=== PATIENT | male | born 1950 | race Caucasian/White ===

== ENCOUNTER 2020-12-08 10:12 | Outpatient (REF) | payer MEDICARE, SELFPAY ==
[2020-12-08 14:21] LABS: PSA,Total (Free>4and<10) 7.61 ng/mL (0.00-4.00)
[2020-12-10 12:37] LABS: Free Prostate Spec Ag 2.1 ng/mL; Percent Free Prostate Spec Ag 30 % (calc) (>25)
== END 2020-12-08 10:13 | disposition home or self-care (01) ==
LOC: HO.10HDL 10:12
PROVIDERS: Visit Provider Urology
DX: Z12.5 Encounter for screening for malignant neoplasm of prostate (principal); N40.0 Benign prostatic hyperplasia without lower urinary tract symptoms; R97.20 Elevated prostate specific antigen [PSA]
CPT/HCPCS: 36415; 84153; 84154

== ENCOUNTER → 2020-12-15 12:45 | Outpatient (BNVA) | payer MEDICARE, SELFPAY | PROVIDERS: Visit Provider Urology | CPT/HCPCS: Q3014 ==

== ENCOUNTER → 2021-01-05 13:28 | Outpatient (BNVA) | payer MEDICARE, SELFPAY | PROVIDERS: Visit Provider Urology | DX: N40.0 Benign prostatic hyperplasia without lower urinary tract symptoms (principal); R97.20 Elevated prostate specific antigen [PSA] | CPT/HCPCS: Q3014 ==

== ENCOUNTER 2021-02-20 11:14 | Outpatient (REF) | payer MEDICARE, SELFPAY ==
[2021-02-20 12:49] VITALS: BMI 28.3
[2021-02-20 12:50] VITALS: BP 155/60; PULSE 62; RESP 16; TEMP 36.6; O2SAT 99
[2021-02-20 13:17] VITALS: BP 145/65; PULSE 71; RESP 16; O2SAT 100
--- NOTE | 2021-02-20 13:17 | W.PM.OPN ---
Operative Note Operative Note Date of Service: 02/20/21 Narrative: Preoperative diagnosis: Elevated PSA Postoperative diagnosis: Elevated PSA Procedure: 1. transrectal ultrasound measurement of prostate 2. transrectal ultrasound-guided pudendal nerve block 3. transrectal ultrasound-guided prostate biopsy 12 core Surgeon: Dr. Mingo Warner Anesthetic: Local Indications for procedure: Elevated PSA Prostate Cancer Procedure: After informed consent was verified, the patient was brought into the procedure area and lay left-hand side down on the table. Patient identity confirmed. Perioperative antibiotics confirmed. Iodine 10cc with Gel was placed per rectum Ultrasound probe was placed per rectum The prostate was measured in 3 dimensions Total volume equals 110 gm There were no cystic structures and no calcifications noted and the prostate was heterogenous in nature A ultrasound-guided pudendal nerve block was performed using 10 cc of 1% lidocaine. 8 cc was placed at the base and 2 cc of the apex. A 12 core biopsy was performed with 6 cores each side. Two cores were taken at the apex, mid and base. Cores were spaced between lateral and medial. He tolerated the procedure well. Was able to ambulate to bathroom after 5 minutes. Printed instructions regarding antibiotic use and common side effects such as low-grade temperature and bleeding were given Pathology: 12 core prostate biopsy.
[2021-02-20 13:20] VITALS: BP 94/52; PULSE 57; RESP 12; O2SAT 96
[2021-02-20 13:31] VITALS: BP 114/41; PULSE 64; RESP 16; O2SAT 100
[2021-02-20 13:51] VITALS: BP 112/43; PULSE 59; RESP 16; O2SAT 97
[2021-02-20 14:45] VITALS: BP 111/50; PULSE 59; RESP 17; O2SAT 99
== END 2021-02-20 11:15 | disposition home or self-care (01) ==
LOC: HO.MS 11:14
PROVIDERS: PCP Internal Medicine; Visit Provider Urology
PROC: (CPT 55700; principal; 2021-02-20 12:00)
DX: R97.20 Elevated prostate specific antigen [PSA] (principal); Z87.891 Personal history of nicotine dependence
CPT/HCPCS: 55700; 76942; 88305; 88344

== ENCOUNTER → 2021-02-28 09:52 | Outpatient (BNVA) | payer MEDICARE, SELFPAY | PROVIDERS: PCP Internal Medicine; Visit Provider Urology | DX: R97.20 Elevated prostate specific antigen [PSA] (principal); N40.0 Benign prostatic hyperplasia without lower urinary tract symptoms | CPT/HCPCS: Q3014 ==

== ENCOUNTER → 2021-06-15 11:25 | Outpatient (BNVA) | payer MEDICARE, SELFPAY | PROVIDERS: PCP Internal Medicine; Visit Provider Urology | DX: N40.0 Benign prostatic hyperplasia without lower urinary tract symptoms (principal); R97.20 Elevated prostate specific antigen [PSA] | CPT/HCPCS: Q3014 ==

== ENCOUNTER → 2021-12-12 13:06 | Outpatient (BNVA) | payer MEDICARE, SELFPAY | PROVIDERS: PCP Internal Medicine; Visit Provider Urology | DX: N40.0 Benign prostatic hyperplasia without lower urinary tract symptoms (principal); N52.9 Male erectile dysfunction, unspecified | CPT/HCPCS: Q3014 ==

== ENCOUNTER → 2022-06-18 08:28 | Outpatient (BNVA) | payer MEDICARE, SELFPAY | PROVIDERS: PCP Internal Medicine; Visit Provider Urology | DX: N52.9 Male erectile dysfunction, unspecified (principal); N40.0 Benign prostatic hyperplasia without lower urinary tract symptoms; R97.20 Elevated prostate specific antigen [PSA] | CPT/HCPCS: 51798; 99212 ==

== ENCOUNTER 2022-12-27 08:29 | Outpatient (AMB) | payer MEDICARE, SELFPAY ==
--- NOTE | 2022-12-27 08:35 | MHC.OFFVIS ---
Intake Intake Visit Reasons: 6M PSA(set) Intake Note: Patient is Present for Follow Up PSA/PVR Urology Medication: Finasteride, Tadalafil (Patient is requesting Refill on Finasteride) Antibiotic Allergies: None Blood Thinners: Aspirin, Xarelton Pharmacy: [facility] PVR: 0 Compliants: Allergies atenolol Allergy (Unknown, Verified 12/27/22 08:39) bradycardia epinephrine Allergy (Unknown, Verified 12/27/22 08:39) tachycardia Medication List - Last Reconciled 12/27/22 by Mingo Warner MD aspirin (Adult Low Dose Aspirin) 81 mg PO DAILY chlorthalidone 25 mg PO DAILY clotrimazole-betamethasone 1-0.05 % 1 appl topical BID 4 weeks finasteride 5 mg PO DAILY 90 days levothyroxine 75 mcg PO DAILY metoprolol succinate ER mg PO pravastatin 20 mg PO DAILY rivaroxaban (Xarelto) 20 mg PO DAILY tadalafil 20 mg PO ONCE PRN 30 days valsartan 320 mg PO DAILY HPI HPI Comments History of Present Illness Details Brendan Hanson is a very pleasant male. He is a patient of Dr. Mari. He here for further evaluation of the following urologic conditions. - Elevated PSA - erectile dysfunction PSA remains stable High free percentage Known 100 g prostate Phimosis Recommend betamethasone clotrimazole 4 weeks thin coat twice a day Continue PSA testing every 6 months Elevated PSA/Abnormal KIKA:? Current management is?observation.? Laboratory investigations include?a free and total PSA evaluation - July 2013 4.4, January 2014 6.1, March 2014 5.0, 28% free, Oct 2015 5.8, 29% free, ?05/17 5.8 36%,?11/14 4.8, 05/18 4.8, 11/15 6.7 F 30%, 05/19 6.2, 11/16 6.4 30%,?11/17 6.8 F30%, 12/19 7.0 30%, 06/19 8.2 30%, 12/21 4.9 18% ? Imaging investigations include? a transrectal ultrasound ?- 06/16 Bladder US - 80 gm prostate, 50cc PVR - 9/19 Bladder US - 100gm prostate, 100cc residual Prostate biopsy 01/18 110 g prostate with 12 core biopsy normal - 11/18 Exomed 45 ? His current IPSS? IPSS Score ?9 ? Overall symptoms are?mild.? Therapeutic plan will be?continue to follow PSA [facility] Medical History Benign prostatic hyperplasia without lower urinary tract symptoms Elevated prostate specific antigen [PSA] Social History Alcohol intake: current Alcohol intake frequency: holidays/special occasions only Patient Tobacco Use Status: Former Tobacco user Review of Systems Const Denies chills and Denies fever(s) Card Reports no additional complaints and Denies syncope Resp Denies cough GI Denies abdominal pain and Denies heartburn Reports as per HPI and Denies change in libido Neuro Denies syncope Psych Denies change in libido Endo Denies change in libido Physical Exam Const General: cooperative, healthy appearing, comfortable and no acute distress Orientation/consciousness: patient oriented x3 HEENT Face and sinus: Yes normal facial exam Mouth: moist mucous membranes Neck Neck: Yes normal visual inspection, Yes full ROM and Yes trachea midline Chest Chest palpation & inspection: normal inspection of the chest Resp Effort & Inspection: normal respiratory effort, able to speak in complete sentences and no respiratory distress GI Inspection: Yes normal to inspection Back/Spine/Pelvis Cervical Spine: normal cervical lordosis Thoracic/Lumbar Spine: thoracic and lumbar spine normal to inspection Skin General skin exam: no rashes or lesions noted Neuro General: patient oriented x3, gait normal, tone normal and moves all extremities Extrem General: Yes normal to inspection and Yes capillary refill normal Office Procedures Post Void Residual Post Residual Void Post Void Residual (PVR): 0 [id number] Void Residual by ultrasound Results AMB Urinalysis, Automated UA Leukoctes 0 Aniket/uL Last Edit by ADRIANA Posadas on 12/27/22 08:46 UA Nitrite Negative Last Edit by ADRIANA Posadas on 12/27/22 08:46 UA Urobilinogen 0.2 mg/dL Last Edit by Genie Galdamez RMA on 12/27/22 08:46 UA Protein 0 mg/dL Last Edit by Genie Galdamez RMA on 12/27/22 08:46 UA pH 6.0 Last Edit by Genie Galdamez, RMA on 12/27/22 08:46 UA Blood 0 Emigdio/uL Last Edit by Genie Galdamez, RMA on 12/27/22 08:46 UA Specific [place] 1.015 Last Edit by Genie Galdamez, RMA on 12/27/22 08:46 UA Ketone Negative Last Edit by Genie Galdamez, RMA on 12/27/22 08:46 UA Bilirubin 0 mg/dL Last Edit by Genie Galdamez RMA on 12/27/22 08:46 UA Glucose 0 mg/dL Last Edit by Genie Galdamez, RMA on 12/27/22 08:46 Results Reviewed Results Reviewed: Laboratory Last Values Urine pH (Auto) 6.0 12/27/22 08:40 Specific [place] (Auto) 1.015 12/27/22 08:40 Urine Protein (Auto) 0 mg/dL 12/27/22 08:40 Glucose (UA)(Auto) 0 mg/dL 12/27/22 08:40 Urine Ketones (Auto) Negative 12/27/22 08:40 Urine Blood (Auto) 0 Emigdio/uL 12/27/22 08:40 Urine Nitrite (Auto) Negative 12/27/22 08:40 Urine Bilirubin (Auto) 0 mg/dL 12/27/22 08:40 Urine Urobilinogen (Auto) 0.2 mg/dL 12/27/22 08:40 Leukocyte Esterase (Auto) 0 Aniket/uL 12/27/22 08:40 Assessment & Plan Assessment & Plan (1) Phimosis: Code(s): N47.1 - Phimosis Plan Six month follow-up Orders: Orders AMB Urinalysis Automated Today Z13.9 - Encounter for screening, unspecified PSA,Total (Free>4and<10) 6 Months R97.20 - Elevated prostate specific antigen [PSA] AMB Post Void Residual by ultrasound Today N40.0 - Benign prostatic hyperplasia without lower urinary tract symptoms Medications: New clotrimazole-betamethasone 1-0.05 % Apply thin coat 2 times per day 1 appl topical BID 45 grams 0RF 4 weeks N47.1 - Phimosis, N48.1 - Balanitis Patient Instructions: Imaging studies, laboratory and physical exam results were discussed and reviewed in detail. No major barriers to patient understanding were identified. An opportunity to ask questions regarding the treatment plan was provided. All questions were answered. The patient expressed understanding and agreement with the above treatment plan. The patient is aware they should contact our office by phone for worsening of their current condition or the appearance of new urologic symptoms. Compliance is encouraged with any medications and followup testing that is ordered. It is a privilege to participate in the urologic care of your patient. If you have any questions or concerns regarding treatment for the above conditions, or other urologic issues, please do not hesitate to contact me. The office telephone contact is [phone]. This note is constructed using voice recognition software. While every effort has been made to ensure accuracy district manager major accounts sales errors may have been included. Yours sincerely, Dr Mingo Warner MD, [facility] - Urology Providers of Expert, Compassionate Care for the Genitourinary System Coding Level of Care Code Est Pt Level 4 (78980) Diagnoses Phimosis N47.1 CPT Codes Post Residual Void - PVR CPT Code: 61256-[id number] Void Residual by ultrasound ([id number])
== END 2022-12-27 08:57 | disposition home or self-care (01) ==
PROVIDERS: PCP Internal Medicine; Visit Provider Urology
DX: N47.1 Phimosis (principal); Z13.9 Encounter for screening, unspecified
CPT/HCPCS: 99214

== ENCOUNTER → 2022-12-27 08:29 | Outpatient (BNVA) | payer MEDICARE, SELFPAY | PROVIDERS: Visit Provider Urology | DX: N47.1 Phimosis (principal) | CPT/HCPCS: 51798; 81003; 99212 ==

== ENCOUNTER 2023-06-20 13:28 | Outpatient (REF) | payer MEDICARE, SELFPAY ==
[2023-06-20 15:12] LABS: PSA,Total (Free>4and<10) 4.09 ng/mL (0.00-4.00)
[2023-06-23 10:34] LABS: Percent Free Prostate Spec Ag 26 % (calc) (>25); Prostate Specific Ag Total 3.8 ng/mL (< OR = 4.0)
== END 2023-06-20 13:29 | disposition home or self-care (01) ==
LOC: HO.LAB 13:28
PROVIDERS: PCP Internal Medicine; Visit Provider Urology
DX: R97.20 Elevated prostate specific antigen [PSA] (principal); Z12.5 Encounter for screening for malignant neoplasm of prostate
CPT/HCPCS: 36415; 84153; 84154

== ENCOUNTER 2023-06-27 08:17 | Outpatient (AMB) | payer MEDICARE, SELFPAY ==
--- NOTE | 2023-06-27 08:18 | A.OFFVIS_ITS ---
Intake Intake Visit Reasons: 6M PSA(set) Intake Note: Patient presents today for a telehealth follow up on PSA Meds- Finasteride, Tadalafil Allergies to Antibiotic- No Known Allergies Blood Thinner- Aspirin, Xarelto Associate Doctor Required: No Allergies atenolol Allergy (Unknown, Verified 06/27/23 08:19) bradycardia epinephrine Allergy (Unknown, Verified 06/27/23 08:19) tachycardia HPI HPI Comments History of Present Illness Details Brendan Hanson is a very pleasant male. He is a patient of Dr. Mari. He here for further evaluation of the following urologic conditions. - Elevated PSA - erectile dysfunction Telemedicine Evaluation 15 min Consultation Doximity Alvino Video attempted PSA remains stable High free percentage Known 100 g prostate Cut back finasteride to Friday, Friday, Friday Six-month follow-up PSA Phimosis Responded well to betamethasone clotrimazole No recurrence Elevated PSA/Abnormal KIKA:? Current management is?observation.? Laboratory investigations include?a free and total PSA evaluation - July 2013 4.4, January 2014 6.1, March 2014 5.0, 28% free, Oct 2015 5.8, 29% free, ?05/17 5.8 36%,?11/14 4.8, 05/18 4.8, 11/15 6.7 F 30%, 05/19 6.2, 11/16 6.4 30%,?11/17 6.8 F30%, 12/19 7.0 30%, 06/19 8.2 30%, 12/21 4.9 18%, 06/21 4.1 26% ? Imaging investigations include? a transrectal ultrasound ?- 06/16 Bladder US - 80 gm prostate, 50cc PVR - 12/17 Bladder US - 100gm prostate, 100cc residual Prostate biopsy 01/18 110 g prostate with 12 core biopsy normal - 11/18 Exomed 45 ? His current IPSS? IPSS Score ?9 ? Overall symptoms are?mild.? Therapeutic plan will be?continue to follow PSA COUNT INCLUDES [facility] Medical History Benign prostatic hyperplasia without lower urinary tract symptoms Elevated prostate specific antigen [PSA] Social History Alcohol intake: current Alcohol intake frequency: holidays/special occasions only Patient Tobacco Use Status: Former Tobacco user Review of Systems Const All systems reviewed & are unremarkable except as noted in HPI and below Reports no additional complaints Resp Reports no additional complaints GI Reports no additional complaints Reports as per HPI Musc Reports no additional complaints Physical Exam Telemedicine evaluation Appropriate responses Regular breathing rate and rhythm HEENT Head: Yes normal to inspection Ears: hearing grossly normal bilaterally Eyes General: appearance normal, both eyes and all related structures Neck Neck: Yes normal visual inspection Chest Chest palpation & inspection: normal inspection of the chest Resp Effort & Inspection: normal respiratory effort and able to speak in complete sentences Assessment & Plan Assessment & Plan (1) Erectile dysfunction: Code(s): N52.9 - Male erectile dysfunction, unspecified (2) Phimosis: Code(s): N47.1 - Phimosis (3) Elevated prostate specific antigen [PSA]: Code(s): R97.20 - Elevated prostate specific antigen [PSA] Plan Six-month follow-up PSA Orders: Orders Prostate Specific Antigen 6 Months R97.20 - Elevated prostate specific antigen [PSA] Medications: Refilled finasteride 5 mg PO DAILY 90 tabs 1RF 90 days R97.20 - Elevated prostate specific antigen [PSA] Patient Instructions: Imaging studies, laboratory and physical exam results were discussed and reviewed in detail. No major barriers to patient understanding were identified. An opportunity to ask questions regarding the treatment plan was provided. All questions were answered. The patient expressed understanding and agreement with the above treatment plan. The patient is aware they should contact our office by phone for worsening of their current condition or the appearance of new urologic symptoms. Compliance is encouraged with any medications and followup testing that is ordered. It is a privilege to participate in the urologic care of your patient. If you have any questions or concerns regarding treatment for the above conditions, or other urologic issues, please do not hesitate to contact me. The office telephone contact is [phone]. This note is constructed using voice recognition software. While every effort has been made to ensure accuracy hand spring repairer errors may have been included. Yours sincerely, Dr Mingo Warner MD, [facility] - Urology Providers of Expert, Compassionate Care for the Genitourinary System Telehealth Telehealth Location of provider rendering services: practice address Location of patient: address on file Patient Identification confirmed using: Name, : Yes Telehealth method: video Patient verbally consented to treatment: Yes Patient verbally consented to billing insurance company: Yes Patient informed of any privacy concerns related to visit: Yes Coding Level of Care Code Tele Est Pt Level 3 (00934) Diagnoses Erectile dysfunction N52.9 Phimosis N47.1 Elevated prostate specific antigen [PSA] R97.20
== END 2023-06-27 09:41 | disposition home or self-care (01) ==
LOC: HO.HUSH 08:17
PROVIDERS: PCP Internal Medicine; Visit Provider Urology
DX: N52.9 Male erectile dysfunction, unspecified (principal); N47.1 Phimosis; R97.20 Elevated prostate specific antigen [PSA]
CPT/HCPCS: 99213

== ENCOUNTER → 2023-06-27 08:17 | Outpatient (BNVA) | payer MEDICARE, SELFPAY | PROVIDERS: PCP Internal Medicine; Visit Provider Urology ==

== ENCOUNTER 2023-12-22 12:18 | Outpatient (REF) | payer MEDICARE, SELFPAY | END 2023-12-22 12:19 | disposition home or self-care (01) | LOC: HO.LAB 12:18 | PROVIDERS: PCP Internal Medicine; Visit Provider Urology | DX: R97.20 Elevated prostate specific antigen [PSA] (principal); Z12.5 Encounter for screening for malignant neoplasm of prostate | CPT/HCPCS: 36415; 84153 ==

== ENCOUNTER 2023-12-30 08:39 | Outpatient (AMB) | payer MEDICARE, SELFPAY ==
--- NOTE | 2023-12-30 08:25 | A.OFFVIS_ITS ---
Intake Visit Reasons: 6M Follow Up-PSA(set) Intake Note: Patient is Present for Follow Up PSA Urology Medication: Finasteride, Tadalafil Antibiotic Allergies:None Blood Thinners: Aspirin, Xarelto (Patient has stopped both Blood Thinners) Recent PSA: 12/22/23- 3.50 Patient states he is here for his follow up. States no voiding issues or concerns Gyro Mechanic Required: No Accompanied by: Self / Same As Patient Allergies atenolol Allergy (Unknown, Verified 12/30/23 08:41) bradycardia epinephrine Allergy (Unknown, Verified 12/30/23 08:41) tachycardia Medication List - Last Reconciled 12/30/23 by Mingo Warner MD allopurinol 300 mg PO DAILY amlodipine 5 mg PO DAILY aspirin (Adult Low Dose Aspirin) 81 mg PO DAILY clotrimazole-betamethasone 1-0.05 % 1 appl topical BID 4 weeks dabigatran etexilate mg PO finasteride 5 mg PO DAILY 90 days levothyroxine 75 mcg PO DAILY metoprolol succinate ER mg PO pravastatin 20 mg PO DAILY rivaroxaban (Xarelto) 20 mg PO DAILY tadalafil 20 mg PO ONCE PRN 30 days valsartan 320 mg PO DAILY HPI Comments Details: Brendan Hanson is a very pleasant male. He is a patient of Dr. Mari. He here for further evaluation of the following urologic conditions. - Elevated PSA - erectile dysfunction PSA remains stable High free percentage Known 100 g prostate Finasteride - Friday, Friday, Friday PSA stable Effective urinary parameter, adequate stream, complete emptying Six-month follow-up PSA - prostate MRI, prior negative biopsy Phimosis Responded well to betamethasone clotrimazole No recurrence Elevated PSA/Abnormal KIKA:? Current management is?observation.? Laboratory investigations include?a free and total PSA evaluation - July 2013 4.4, January 2014 6.1, March 2014 5.0, 28% free, Oct 2015 5.8, 29% free, ?05/17 5.8 36%,?11/14 4.8, 05/18 4.8, 11/15 6.7 F 30%, 05/19 6.2, 11/16 6.4 30%,?11/17 6.8 F30%, 12/19 7.0 30%, 06/19 8.2 30%, 12/21 4.9 18%, 06/21 4.1 26%, 12/22 3.5 ? Imaging investigations include? a transrectal ultrasound ?- 06/16 Bladder US - 80 gm prostate, 50cc PVR - 12/17 Bladder US - 100gm prostate, 100cc residual Prostate biopsy 01/18 110 g prostate with 12 core biopsy normal - 11/18 Exomed 45 ? His current IPSS? IPSS Score ?9 ? Overall symptoms are?mild.? Therapeutic plan will be?continue to follow PSA [facility] Medical History Benign prostatic hyperplasia without lower urinary tract symptoms Elevated prostate specific antigen [PSA] Social History Alcohol intake: current Alcohol intake frequency: holidays/special occasions only Patient Tobacco Use Status: Former Tobacco user Review of Systems Const Denies chills and Denies fever(s) Card Reports no additional complaints and Denies syncope Resp Denies cough GI Denies abdominal pain and Denies heartburn Reports as per HPI and Denies change in libido Neuro Denies syncope Psych Denies change in libido Endo Denies change in libido Physical Exam Const General: cooperative, healthy appearing, comfortable and no acute distress Orientation/consciousness: patient oriented x3 HEENT Face and sinus: Yes normal facial exam Mouth: moist mucous membranes Neck Neck: Yes normal visual inspection, Yes full ROM and Yes trachea midline Chest Chest palpation & inspection: normal inspection of the chest Resp Effort & Inspection: normal respiratory effort, able to speak in complete sentences and no respiratory distress GI Inspection: Yes normal to inspection Back/Spine/Pelvis Cervical Spine: normal cervical lordosis Thoracic/Lumbar Spine: thoracic and lumbar spine normal to inspection Skin General skin exam: no rashes or lesions noted Neuro General: patient oriented x3, gait normal, tone normal and moves all extremities Extrem General: Yes normal to inspection and Yes capillary refill normal Assessment & Plan Assessment & Plan (1) Phimosis: Code(s): N47.1 - Phimosis Category: Medical (2) Erectile dysfunction: Code(s): N52.9 - Male erectile dysfunction, unspecified Category: Medical (3) Benign prostatic hyperplasia without lower urinary tract symptoms: Code(s): N40.0 - Benign prostatic hyperplasia without lower urinary tract symptoms Category: Medical (4) Elevated prostate specific antigen [PSA]: Code(s): R97.20 - Elevated prostate specific antigen [PSA] Category: Medical Plan Six-month follow-up Orders: Orders MR pelvis wo/w con 6 Months R97.20 - Elevated prostate specific antigen [PSA] Prostate Specific Antigen 6 Months R97.20 - Elevated prostate specific antigen [PSA] Patient Instructions: Imaging studies, laboratory and physical exam results were discussed and reviewed in detail. No major barriers to patient understanding were identified. An opportunity to ask questions regarding the treatment plan was provided. All questions were answered. The patient expressed understanding and agreement with the above treatment plan. The patient is aware they should contact our office by phone for worsening of their current condition or the appearance of new urologic symptoms. Compliance is encouraged with any medications and followup testing that is ordered. It is a privilege to participate in the urologic care of your patient. If you have any questions or concerns regarding treatment for the above conditions, or other urologic issues, please do not hesitate to contact me. The office telephone contact is [phone]. This note is constructed using voice recognition software. While every effort has been made to ensure accuracy electromechanical assembler errors may have been included. Yours sincerely, Dr Mingo Warner MD, [facility] - Urology Providers of Expert, Compassionate Care for the Genitourinary System Coding Level of Care Code Est Pt Level 3 (41867) Diagnoses Phimosis N47.1 Erectile dysfunction N52.9 Benign prostatic hyperplasia without lower urinary tract symptoms N40.0 Elevated prostate specific antigen [PSA] R97.20
== END 2023-12-30 08:57 | disposition home or self-care (01) ==
PROVIDERS: PCP Internal Medicine; Visit Provider Urology
DX: N47.1 Phimosis (principal); N52.9 Male erectile dysfunction, unspecified; N40.0 Benign prostatic hyperplasia without lower urinary tract symptoms; R97.20 Elevated prostate specific antigen [PSA]
CPT/HCPCS: 99213

== ENCOUNTER → 2023-12-30 08:39 | Outpatient (BNVA) | payer MEDICARE, SELFPAY | PROVIDERS: PCP Internal Medicine; Visit Provider Urology | DX: N40.0 Benign prostatic hyperplasia without lower urinary tract symptoms (principal); N52.9 Male erectile dysfunction, unspecified; N47.1 Phimosis; R97.20 Elevated prostate specific antigen [PSA]; Z79.899 Other long term (current) drug therapy | CPT/HCPCS: 99212 ==

== ENCOUNTER 2024-06-09 10:13 | Outpatient (REF) | payer MEDICARE, SELFPAY ==
[2024-06-09 12:41] LABS: Prostate Specific Antigen 3.49 ng/mL (<0.05-4.0)
== END 2024-06-09 10:14 | disposition home or self-care (01) ==
LOC: HO.LAB 10:13
PROVIDERS: PCP Internal Medicine; Visit Provider Urology
DX: R97.20 Elevated prostate specific antigen [PSA] (principal); Z12.5 Encounter for screening for malignant neoplasm of prostate
CPT/HCPCS: 36415; 84153

== ENCOUNTER → 2024-06-23 08:31 | Outpatient (BNV) | payer MEDICARE, SELFPAY | PROVIDERS: PCP Internal Medicine; Visit Provider Radiology Diagnostic Radiology | DX: R97.20 Elevated prostate specific antigen [PSA] (principal) | CPT/HCPCS: 72197 ==

== ENCOUNTER 2024-06-23 08:32 | Outpatient (REF) | payer MEDICARE, SELFPAY ==
--- NOTE | ~2024-06-23 | MR_ITS ---
EXAMINATION: MR PROSTATE WITHOUT THEN WITH IV CONTRAST HISTORY: R97.20 - Elevated prostate specific antigen [PSA] TECHNIQUE: 1.5T body coil survey of the pelvis was performed. Phase array coil imaging of the prostate was performed in multiplanar high resolution axial, coronal, sagittal fast spin echo T2 and axial T1 weighted imaging sequences. Axial diffusion imaging at intermediate and high field performed with ADC mapping. Next, 9 mL Gadavist was given by intravenous infusion, and dynamic axial imaging performed. COMPARISON: There are no prior studies for comparison. CLINICAL DATA: Most recent PSA: 3.49 ng/mL on 06/09/2024. PSA Density: 0.047 ng/mL squared Prostate Biopsy: Negative biopsy on 02/20/2021. FINDINGS: Prostate size: 6.1 x 5.7 x 4.1 cm. Calculated prostate volume is 74.1 mL. Hemorrhage: None. Transitional Zone: There is moderate to marked heterogeneous nodular hypertrophy of the transitional zone. Peripheral Zone: There is diffuse thinning of the peripheral zone. There are linear foci of decreased T2 signal intensity within the peripheral zone which can be seen in the setting of prostatitis of scarring. No discrete focus of abnormal signal intensity is identified. There are no foci of restricted diffusion. Seminal Vesicles/Ejaculatory Ducts: Symmetric and normal in signal and caliber. Pelvic Lymph Nodes: No obturator or internal iliac lymph nodes meeting size criteria for adenopathy. Marrow Signal: Normal marrow signal and enhancement without focal lesion identified. MR/MR Prostate wo/w con IMPRESSION: No discrete focus of abnormal signal intensity is identified to suggest clinically significant prostate carcinoma. PI-RADS 2: Low (clinically significant cancer is unlikely to be present) PI-RADS Assessment Categories PI-RADS 1: Very low (clinically significant cancer is highly unlikely to be present) PI-RADS 2: Low (clinically significant cancer is unlikely to be present) PI-RADS 3: Intermediate (the presence of clinically significant cancer is equivocal) PI-RADS 4: High (clinically significant cancer is likely to be present) PI-RADS 5: Very high (clinically significant cancer is highly likely to be present) [employer]. MR Prostate Imaging Reporting and Data System version 2.1. [email or web address] Electronically signed by: Gabino Trevino MD 06/23/2024 09:59 AM EDT RP
[2024-06-23] MEDS: gadobutroL 10 ML VIAL IVPUSH (09:43)
== END 2024-06-23 08:33 | disposition home or self-care (01) ==
LOC: HO.MRI 08:32
PROVIDERS: PCP Internal Medicine; Visit Provider Urology
DX: R97.20 Elevated prostate specific antigen [PSA] (principal)
CPT/HCPCS: 72197; A9585

== ENCOUNTER 2024-07-15 08:35 | Outpatient (AMB) | payer MEDICARE, SELFPAY ==
--- NOTE | 2024-07-15 08:35 | MHC.OFFVIS ---
Intake Visit Reasons: 6m/MRI/PSA Intake Note: Patient is present for 6M/MRI/PSA Urology Medication:FINASTERIDE,TADALAFIL Antibiotic Allergy:NONE Blood Thinner:ASPIRIN,RIVAROXABAN [place] Required: No Allergies atenolol Allergy (Unknown, Verified 07/15/24 08:36) bradycardia epinephrine Allergy (Unknown, Verified 07/15/24 08:36) tachycardia HPI Comments Details: Brendan Hanson is a very pleasant male. He is a patient of Dr. Mari. He here for further evaluation of the following urologic conditions. - Elevated PSA - erectile dysfunction Telemedicine Evaluation 15 min Consultation [facility] PSA remains stable Discussed PSA result which remains stable Prostate MRI shows 75 g prostate with no evidence of structural changes suggestive for prostate cancer Finasteride - Friday, Friday, Friday PSA stable Effective urinary parameter, adequate stream, complete emptying Six-month follow-up PSA Phimosis Responded well to betamethasone clotrimazole No recurrence Elevated PSA/Abnormal KIKA:? Current management is?observation.? Laboratory investigations include?a free and total PSA evaluation - July 2013 4.4, January 2014 6.1, March 2014 5.0, 28% free, Oct 2015 5.8, 29% free, ?05/17 5.8 36%,?11/14 4.8, 05/18 4.8, 11/15 6.7 F 30%, 05/19 6.2, 11/16 6.4 30%,?11/17 6.8 F30%, 12/19 7.0 30%, 06/19 8.2 30%, 12/21 4.9 18%, 06/21 4.1 26%, 12/22 3.5, 07/23 3.5 ? Imaging investigations include? a transrectal ultrasound ?- 06/16 Bladder US - 80 gm prostate, 50cc PVR - 12/17 Bladder US - 100gm prostate, 100cc residual - 07/23 prostate MRI 75 g Prostate biopsy 01/18 110 g prostate with 12 core biopsy normal - 11/18 Exomed 45 ? His current IPSS? IPSS Score ?9 ? Overall symptoms are?mild.? Therapeutic plan will be?continue to follow PSA [facility], [facility] Medical History Benign prostatic hyperplasia without lower urinary tract symptoms Elevated prostate specific antigen [PSA] Social History Alcohol intake: current Alcohol intake frequency: holidays/special occasions only Patient Tobacco Use Status: Former Tobacco user Review of Systems Const Denies chills and Denies fever(s) Card Reports no additional complaints and Denies syncope Resp Denies cough GI Denies abdominal pain and Denies heartburn Reports as per HPI and Denies change in libido Neuro Denies syncope Psych Denies change in libido Endo Denies change in libido Physical Exam Const General: cooperative, healthy appearing, comfortable and no acute distress Orientation/consciousness: patient oriented x3 HEENT Face and sinus: Yes normal facial exam Mouth: moist mucous membranes Neck Neck: Yes normal visual inspection, Yes full ROM and Yes trachea midline Chest Chest palpation & inspection: normal inspection of the chest Resp Effort & Inspection: normal respiratory effort, able to speak in complete sentences and no respiratory distress GI Inspection: Yes normal to inspection Back/Spine/Pelvis Cervical Spine: normal cervical lordosis Thoracic/Lumbar Spine: thoracic and lumbar spine normal to inspection Skin General skin exam: no rashes or lesions noted Neuro General: patient oriented x3, gait normal, tone normal and moves all extremities Extrem General: Yes normal to inspection and Yes capillary refill normal Assessment & Plan Assessment & Plan (1) Elevated prostate specific antigen [PSA]: Code(s): R97.20 - Elevated prostate specific antigen [PSA] Category: Medical (2) Benign prostatic hyperplasia without lower urinary tract symptoms: Code(s): N40.0 - Benign prostatic hyperplasia without lower urinary tract symptoms Category: Medical (3) Erectile dysfunction: Code(s): N52.9 - Male erectile dysfunction, unspecified Category: Medical Plan Six-month follow-up Orders: Orders Prostate Specific Antigen 6 Months N40.0 - Benign prostatic hyperplasia without lower urinary tract symptoms Patient Instructions: This note is constructed using voice recognition software. While every effort has been made to ensure accuracy damage adjuster errors may have been included. Imaging studies, laboratory and physical exam results were discussed and reviewed in detail. No major barriers to patient understanding were identified. An opportunity to ask questions regarding the treatment plan was provided. All questions were answered. The patient expressed understanding and agreement with the above treatment plan. The patient is aware they should contact our office by phone for worsening of their current condition or the appearance of new urologic symptoms. Compliance is encouraged with any medications and followup testing that is ordered. It is a privilege to participate in the urologic care of your patient. If you have any questions or concerns regarding treatment for the above conditions, or other urologic issues, please do not hesitate to contact me. The office telephone contact is [phone]. Sincerely, Dr Mingo Warner MD, [facility] - Urology Compassionate Specialist Care for the Genitourinary System Coding Level of Care Code Tele Est Pt Level 3 (81023) Complex EM visit Add On G2211 Diagnoses Elevated prostate specific antigen [PSA] R97.20 Benign prostatic hyperplasia without lower urinary tract symptoms N40.0 Erectile dysfunction N52.9
== END 2024-07-15 10:35 | disposition home or self-care (01) ==
LOC: HO.HUSH 08:35
PROVIDERS: PCP Internal Medicine; Visit Provider Urology
DX: R97.20 Elevated prostate specific antigen [PSA] (principal); N40.0 Benign prostatic hyperplasia without lower urinary tract symptoms; N52.9 Male erectile dysfunction, unspecified
CPT/HCPCS: 99213; G2211

== ENCOUNTER → 2024-07-15 08:35 | Outpatient (BNVA) | payer MEDICARE, SELFPAY | PROVIDERS: PCP Internal Medicine; Visit Provider Urology ==

== ENCOUNTER 2024-12-28 11:04 | Outpatient (REF) | payer MEDICARE, SELFPAY ==
[2024-12-28 12:42] LABS: Prostate Specific Antigen 2.71 ng/mL (<0.05-4.0)
== END 2024-12-28 11:05 | disposition home or self-care (01) ==
LOC: HO.LAB 11:04
PROVIDERS: PCP Internal Medicine; Visit Provider Urology
DX: N40.0 Benign prostatic hyperplasia without lower urinary tract symptoms (principal); R97.20 Elevated prostate specific antigen [PSA]; Z12.5 Encounter for screening for malignant neoplasm of prostate
CPT/HCPCS: 36415; 84153

== ENCOUNTER 2025-01-14 08:22 | Outpatient (AMB) | payer MEDICARE, SELFPAY ==
--- NOTE | 2025-01-14 08:27 | A.OFFVIS_ITS ---
Intake Visit Reasons: 6M follow up/ PSA Intake Note: patient presents today for: 6mo follow up/PSA urology medications: allopurinol, finasteride, tadalafil blood thinners: aspirin labs done 12/28/24: PSA 2.71 today's PVR: 31mls Office Services Representative Required: No Accompanied by: Self / Same As Patient Allergies atenolol Allergy (Unknown, Verified 01/14/25 08:28) bradycardia epinephrine Allergy (Unknown, Verified 01/14/25 08:28) tachycardia HPI Comments Details: Brendan Hanson is a very pleasant male. He is a patient of Dr. Mari. He here for further evaluation of the following urologic conditions. - Elevated PSA - erectile dysfunction PSA 12/23 2.7 Finasteride - Friday, Friday, Friday PSA stable Effective urinary parameter, adequate stream, complete emptying Twelve month follow-up PSA Phimosis Responded well to betamethasone clotrimazole No recurrence Elevated PSA/Abnormal KIKA:? Prostate MRI shows 75 g prostate with no evidence of structural changes suggestive for prostate cancer ? Current management is?finasteride.? Laboratory investigations include?a free and total PSA evaluation - July 2013 4.4, January 2014 6.1, March 2014 5.0, 28% free, Oct 2015 5.8, 29% free, ?05/17 5.8 36%,?11/14 4.8, 05/18 4.8, 11/15 6.7 F 30%, 05/19 6.2, 11/16 6.4 30%,?11/17 6.8 F30%, 12/19 7.0 30%, 06/19 8.2 30%, 12/21 4.9 18%, 06/21 4.1 26%, 12/22 3.5, 07/23 3.5 ? Imaging investigations include? a transrectal ultrasound ?- 06/16 Bladder US - 80 gm prostate, 50cc PVR - 12/17 Bladder US - 100gm prostate, 100cc residual - 07/23 prostate MRI 75 g Prostate biopsy 01/18 110 g prostate with 12 core biopsy normal - 11/18 Exomed 45 ? His current IPSS? IPSS Score ?9 ? Overall symptoms are?mild.? Therapeutic plan will be?continue to follow PSA [facility] Medical History Benign prostatic hyperplasia without lower urinary tract symptoms Elevated prostate specific antigen [PSA] Social History Alcohol intake: current Alcohol intake frequency: holidays/special occasions only Patient Tobacco Use Status: Former Tobacco user Review of Systems Const Denies chills and Denies fever(s) Card Reports no additional complaints and Denies syncope Resp Denies cough GI Denies abdominal pain and Denies heartburn Reports as per HPI and Denies change in libido Neuro Denies syncope Psych Denies change in libido Endo Denies change in libido Physical Exam Const General: cooperative, healthy appearing, comfortable and no acute distress Orientation/consciousness: patient oriented x3 HEENT Face and sinus: Yes normal facial exam Mouth: moist mucous membranes Neck Neck: Yes normal visual inspection, Yes full ROM and Yes trachea midline Chest Chest palpation & inspection: normal inspection of the chest Resp Effort & Inspection: normal respiratory effort, able to speak in complete sentences and no respiratory distress GI Inspection: Yes normal to inspection Back/Spine/Pelvis Cervical Spine: normal cervical lordosis Thoracic/Lumbar Spine: thoracic and lumbar spine normal to inspection Skin General skin exam: no rashes or lesions noted Neuro General: patient oriented x3, gait normal, tone normal and moves all extremities Extrem General: Yes normal to inspection and Yes capillary refill normal Office Procedures Post Void Residual Post Residual Void Post Void Residual (PVR): 31 [id number] Void Residual by ultrasound Results AMB Urinalysis, Automated UA Leukoctes 0 Aniket/uL Last Edit by ELDA Hyde on 01/14/25 08:38 UA Nitrite Last Edit by ELDA Hyde on 01/14/25 08:38 UA Urobilinogen 0.2 mg/dL Last Edit by ELDA Hyde on 01/14/25 08:3 8 UA Protein 15 mg/dL Last Edit by ELDA Hyde on 01/14/25 08:38 UA pH 6.0 Last Edit by ELDA Hyde on 01/14/25 08:38 UA Blood 0 Emigdio/uL Last Edit by ELDA Hyde on 01/14/25 08:38 UA Specific [place] 1.015 Last Edit by ELDA Hyde on 01/14/25 08: 38 UA Ketone Last Edit by ELDA Hyde on 01/14/25 08:38 UA Bilirubin 0 mg/dL Last Edit by ELDA Hyde on 01/14/25 08:38 UA Glucose 0 mg/dL Last Edit by ELDA Hyde on 01/14/25 08:38 Results Reviewed Results Reviewed: Laboratory Last Values Urine pH (Auto) 6.0 01/14/25 08:38 Specific [place] (Auto) 1.015 01/14/25 08:38 Urine Protein (Auto) 15 mg/dL 01/14/25 08:38 Glucose (UA)(Auto) 0 mg/dL 01/14/25 08:38 Urine Blood (Auto) 0 Emigdio/uL 01/14/25 08:38 Urine Bilirubin (Auto) 0 mg/dL 01/14/25 08:38 Urine Urobilinogen (Auto) 0.2 mg/dL 01/14/25 08:38 Leukocyte Esterase (Auto) 0 Aniket/uL 01/14/25 08:38 Assessment & Plan Assessment & Plan (1) Elevated prostate specific antigen [PSA]: Code(s): R97.20 - Elevated prostate specific antigen [PSA] Category: Medical (2) Benign prostatic hyperplasia without lower urinary tract symptoms: Code(s): N40.0 - Benign prostatic hyperplasia without lower urinary tract symptoms Category: Medical Plan Twelve month follow-up PSA Orders: Orders AMB Post Void Residual by ultrasound Today N40.0 - Benign prostatic hyperplasia without lower urinary tract symptoms AMB Urinalysis Automated Today Z13.9 - Encounter for screening, unspecified Prostate Specific Antigen 12 Months R97.20 - Elevated prostate specific antigen [PSA] Medications: Refilled finasteride 5 mg PO DAILY 90 tabs 2RF 90 days R97.20 - Elevated prostate specific antigen [PSA] Patient Instructions: This note is constructed using voice recognition software. While every effort has been made to ensure accuracy assistant professor of marine biology errors may have been included. Imaging studies, laboratory and physical exam results were discussed and reviewed in detail. No major barriers to patient understanding were identified. An opportunity to ask questions regarding the treatment plan was provided. All questions were answered. The patient expressed understanding and agreement with the above treatment plan. The patient is aware they should contact our office by phone for worsening of their current condition or the appearance of new urologic symptoms. Compliance is encouraged with any medications and followup testing that is ordered. It is a privilege to participate in the urologic care of your patient. If you have any questions or concerns regarding treatment for the above conditions, or other urologic issues, please do not hesitate to contact me. The office telephone contact is [phone]. Sincerely, Dr Mingo Warner MD, [facility] - Urology Compassionate Specialist Care for the Genitourinary System Coding Level of Care Code Est Pt Level 3 (20995) Complex EM visit Add On G2211 Diagnoses Elevated prostate specific antigen [PSA] R97.20 Benign prostatic hyperplasia without lower urinary tract symptoms N40.0 CPT Codes Post Residual Void - PVR CPT Code: 53987-[place] Void Residual by ultrasound ([id number])
== END 2025-01-14 09:03 | disposition home or self-care (01) ==
LOC: HO.HUSH 08:23
PROVIDERS: PCP Internal Medicine; Visit Provider Urology
DX: R97.20 Elevated prostate specific antigen [PSA] (principal); N40.0 Benign prostatic hyperplasia without lower urinary tract symptoms; Z13.9 Encounter for screening, unspecified
CPT/HCPCS: 99213; G2211

== ENCOUNTER → 2025-01-14 08:22 | Outpatient (BNVA) | payer MEDICARE, SELFPAY | PROVIDERS: PCP Internal Medicine; Visit Provider Urology | DX: N40.0 Benign prostatic hyperplasia without lower urinary tract symptoms (principal); R97.20 Elevated prostate specific antigen [PSA] | CPT/HCPCS: 51798; 81003; 99212 ==